=== PATIENT | female | born 1965 | race Caucasian/White ===

== ENCOUNTER 2017-04-30 20:59 | Emergency (ER) | payer MEDICAID ==
[~2017-04-30] VITALS: Ht 165.1 cm; Wt 55.8 kg
[2017-04-30 20:59] VITALS: BP_SYST 140
[2017-04-30] MEDS ORDERED: ASPIRIN 81 MG TAB.CHEW PO ONE (21:15)
[2017-04-30] MEDS ORDERED: NACL 0.9% 1,000 ML IV ONE (21:15)
[2017-04-30] MEDS ORDERED: NITROGLYCERIN 1 INCH (GM) OINT. TD ONE (21:15)
[2017-04-30 21:30] LABS: BASOPHILS # (AUTO) 0.1 K/uL (0.0-0.2); BASOPHILS % (AUTO) 0.9 % (0.0-2.0); EOSINOPHILS # (AUTO) 0.2 K/uL (0.0-0.4); EOSINOPHILS % (AUTO) 1.9 % (0.0-4.0); HEMATOCRIT 39.3 % (36-48); LYMPHOCYTES # (AUTO) 3.3 K/uL (1.0-5.5); LYMPHOCYTES % (AUTO) 39.6 % (20.5-51.5); MEAN CORPUSCULAR HEMOGLOBIN 30 pg (27-31); MEAN CORPUSCULAR HGB CONC 33 % (32-36); MEAN CORPUSCULAR VOLUME 90 fL (79.0-98.0); MONOCYTES # (AUTO) 0.6 K/uL (0.0-1.0); NEUTROPHILS # (AUTO) 4.2 K/uL (1.8-7.7); NEUTROPHILS % (AUTO) 50.6 % (40.0-70.0); PLATELET COUNT (AUTO) 239 K/uL (130-430); RED BLOOD CELL COUNT(AUTO) 4.34 MIL/uL (4.2-6.2); RED CELL DISTRIBUTION WIDTH 12.8 % (9.0-15.0); WHITE BLOOD COUNT (AUTO) 8.4 K/uL (4.8-10.8)
[2017-04-30 21:33] LABS: CALCIUM 8.8 mg/dL (8.4-11.0); CREATININE 0.71 mg/dL (0.55-1.30); POTASSIUM 3.6 mmol/L (3.5-5.1)
[2017-04-30 21:36] LABS: INR 0.9 (0.8-1.2); PROTHROMBIN TIME 10.3 SECS (9.5-12.5)
[2017-04-30 21:38] LABS: ALBUMIN 3.6 g/dL (3.4-4.8); TOTAL BILIRUBIN 0.2 mg/dL (0.0-1.0); TOTAL PROTEIN, SERUM 6.7 g/dL (6.4-8.3)
[2017-04-30] MEDS ORDERED: KETOROLAC TROMETHAMINE 30 MG VIAL IVP ONE (21:45)
[2017-04-30 22:40] VITALS: BP_SYST 116
== END 2017-04-30 22:40 | disposition home or self-care (01) ==
LOC: SED 20:59
DX: R07.89 Other chest pain (principal); R03.0 Elevated blood-pressure reading, without diagnosis of hypertension; F17.210 Nicotine dependence, cigarettes, uncomplicated; Z88.5 Allergy status to narcotic agent; Z71.6 Tobacco abuse counseling
CPT/HCPCS: 36415; 71010; 80053; 83880; 84484; 85025; 85379; 85610; 85730; 93005; 96361; 96374; 99285; J1885; J7030

== ENCOUNTER 2020-10-18 15:03 | Emergency (ER) | payer MEDICAID ==
[~2020-10-18] VITALS: Ht 172.7 cm; Wt 65.8 kg
[2020-10-18 15:06] VITALS: BP_SYST 138
[2020-10-18] MEDS ORDERED: KETOROLAC TROMETHAMINE 15 MG VIAL IVP ONE (15:30)
[2020-10-18] MEDS ORDERED: KETOROLAC TROMETHAMINE 15 MG VIAL ONE (15:46)
[2020-10-18] MEDS ORDERED: KETOROLAC TROMETHAMINE 15 MG VIAL IM ONE (16:00)
[2020-10-18 16:01] VITALS: BP_SYST 138
== END 2020-10-18 16:01 | disposition home or self-care (01) ==
LOC: SED 15:03
DX: K08.89 Other specified disorders of teeth and supporting structures (principal); Z88.5 Allergy status to narcotic agent
CPT/HCPCS: 96372; 99283; J1885

== ENCOUNTER 2021-06-12 12:01 | Emergency (ER) | payer MEDICAID, SELFPAY ==
[~2021-06-12] VITALS: Ht 165.1 cm; Wt 63.5 kg
[2021-06-12 12:01] VITALS: BP_SYST 112
[2021-06-12] MEDS ORDERED: NACL 0.9% 1,000 ML IV ONE (13:00)
[2021-06-12] MEDS ORDERED: KETOROLAC TROMETHAMINE 30 MG VIAL IVP ONE (13:00)
[2021-06-12 13:24] LABS: BASOPHILS % (AUTO) 0.8 % (0.0-2.0); EOSINOPHILS % (AUTO) 0.7 % (0.0-4.0); HEMATOCRIT 42.8 % (36-48); HEMOGLOBIN 14.4 g/dL (12.0-16.0); LYMPHOCYTES # (AUTO) 2.1 K/uL (1.0-5.5); LYMPHOCYTES % (AUTO) 33.6 % (20.5-51.5); MEAN CORPUSCULAR HEMOGLOBIN 30 pg (27-31); MEAN CORPUSCULAR HGB CONC 34 % (32-36); MEAN CORPUSCULAR VOLUME 90 fL (79.0-98.0); MONOCYTES # (AUTO) 0.5 K/uL (0.0-1.0); MONOCYTES % (AUTO) 8.7 % (1.7-9.3); NEUTROPHILS # (AUTO) 3.4 K/uL (1.8-7.7); NEUTROPHILS % (AUTO) 56.2 % (40.0-70.0); PLATELET COUNT (AUTO) 238 K/uL (130-430); RED BLOOD CELL COUNT(AUTO) 4.76 MIL/uL (4.2-6.2); WHITE BLOOD COUNT (AUTO) 6.1 K/uL (4.8-10.8)
[2021-06-12 13:27] LABS: CALCIUM 8.7 mg/dL (8.4-11.0); CREATININE 0.89 mg/dL (0.55-1.30); POTASSIUM 3.1 mmol/L (3.5-5.1)
[2021-06-12 13:33] LABS: ALBUMIN 3.7 g/dL (3.4-4.8); TOTAL BILIRUBIN 0.5 mg/dL (0.0-1.0)
[2021-06-12 13:47] LABS: INFLUENZA A&B ANTIGEN SCREEN NEGATIVE FOR A & B (NEGATIVE)
[2021-06-12] MEDS ORDERED: POTASSIUM CHLORIDE 20 MEQ TAB.PRT.SR PO ONE (14:00)
[2021-06-12] MEDS ORDERED: METOCLOPRAMIDE HCL 10 MG/2 ML VIAL IVP ONE (14:00)
[2021-06-12] MEDS ORDERED: CEFU250T85 PO (14:31)
[2021-06-12 14:33] LABS: BILIRUBIN,URINE NEGATIVE (NEGATIVE); BLOOD, URINE 2+ (NEGATIVE); CLARITY/URINE CLEAR (CLEAR); COLOR,URINE YELLOW (YELLOW); GLUCOSE,URINE NEGATIVE (NEGATIVE); KETONES,URINE TRACE (NEGATIVE); LEUKOCYTE ESTERASE ,URINE NEGATIVE (NEGATIVE); NITRITE, URINE NEGATIVE (NEGATIVE); PROTEIN URINE NEGATIVE (NEGATIVE); UROBILINOGEN,URINE 0.2 (0.2-1.0)
[2021-06-12] MEDS ORDERED: PANTOPRAZOLE SODIUM 40 MG TAB ONE (14:40)
[2021-06-12 14:47] LABS: BACTERIA,URINE RARE /HPF (None Seen); MUCUS,URINE 1+ /LPF (None Seen); RBC,URINE 0-3 /HPF (0-3); WBC,URINE 0-3 /HPF (0-3)
[2021-06-12 15:08] VITALS: BP_SYST 112
== END 2021-06-12 15:09 | disposition home or self-care (01) ==
LOC: SED 12:01
DX: A09 Infectious gastroenteritis and colitis, unspecified (principal); B34.9 Viral infection, unspecified; Z88.5 Allergy status to narcotic agent; Z79.899 Other long term (current) drug therapy; Z20.822 Contact with and (suspected) exposure to COVID-19
CPT/HCPCS: 36415; 80053; 81000; 85025; 86710; 87426; 96361; 96374; 96375; 99284; J1885; J2765; J7030

== ENCOUNTER 2021-06-14 04:11 | Emergency (ER) | payer MEDICAID, SELFPAY ==
[~2021-06-14] VITALS: Ht 165.1 cm; Wt 64.0 kg
[2021-06-14 04:20] VITALS: BP_SYST 113
--- NOTE | 2021-06-14 04:22 | NUR ---
Placed in room 5 . Placed on site monitor, blood pressure machine and pulse oximeter. To gown for exam. Side rails up. Report given to Rena KRAMER.
--- NOTE | 2021-06-14 04:23 | NUR ---
Patient came to ER. C/O nausea, anxiety x today. Patient reported, patient had nausea, lack of appetite since , A/O,X4, anxious, nausea, vss.
--- NOTE | 2021-06-14 04:23 | NUR ---
ER Dr. Bledsoe at bedside examining patient.
[2021-06-14] MEDS ORDERED: IBUPROFEN 800 MG TABLET PO ONE (04:30)
[2021-06-14] MEDS ORDERED: ONDANSETRON 4 MG ODT TAB PO ONE (04:30)
[2021-06-14] MEDS ORDERED: LORazepam 1 MG TABLET PO ONE (04:30)
[2021-06-14] MEDS ORDERED: ONDA-8 TL (04:38)
--- NOTE | 2021-06-14 06:42 | NUR ---
Patient resting quietly. No acute distress noted. Vital signs within normal range.
--- NOTE | 2021-06-14 06:50 | NUR ---
Called family for a ride.
--- NOTE | 2021-06-14 07:14 | NUR ---
Report given to WILLIAMS Decker and endorse care of patient.
--- NOTE | 2021-06-14 08:25 | NUR ---
Patient given written and verbal discharge instructions and verbalizes understanding. ER MD discussed with patient the results and treatment provided. Patient in stable condition. ID arm band removed. Rx of Zofran given. Patient educated on pain management and to follow up with PMD. Pain Scale 0. Opportunity for questions provided and answered. Medication side effect fact sheet provided.
[2021-06-14 08:45] VITALS: BP_SYST 113
== END 2021-06-14 08:45 | disposition home or self-care (01) ==
LOC: SED 04:11
DX: F41.9 Anxiety disorder, unspecified (principal); R51.9 Headache, unspecified; R11.0 Nausea; Z88.5 Allergy status to narcotic agent; Z79.899 Other long term (current) drug therapy
CPT/HCPCS: 99284; Q0162

== ENCOUNTER 2022-11-19 23:52 | Emergency (ER) | payer MEDICAID ==
[~2022-11-19] VITALS: Ht 162.6 cm; Wt 57.6 kg
[~2022-11-19 23:52] MED LIST: ONDA-8 TL
--- NOTE | 2022-11-20 00:01 | NUR ---
Patient to ER bed 7 to gown for evaluation. Side rails up. Report given to Ronak KRAMER (reg).
[2022-11-20 00:02] VITALS: BP_SYST 129
--- NOTE | 2022-11-20 00:03 | NUR ---
Patient arrived to ED bed 7 for c/o right index finger pain. Patient said that "it hurts, swelling, red." Patient said that she might have "used too much crazy glue on nails and some of it went on the skin." Patient also said that she tried epsom salt, vinegar, ice, and cold water and "none of it helped."
--- NOTE | 2022-11-20 00:03 | NUR ---
TAMIKO Gray examining patient.
[2022-11-20] MEDS ORDERED: LIDOCAINE 2%, 20 ML MDV INJ ONE (00:15)
[2022-11-20] MEDS ORDERED: ACETAMINOPHEN 500 MG TABLET PO ONE (00:30)
[2022-11-20] MEDS ORDERED: cephALEXin 500 MG CAPSULE PO ONE (00:30)
[2022-11-20] MEDS ORDERED: ACET-3465 PO (01:00)
[2022-11-20] MEDS ORDERED: CEPH-548 PO (01:00)
[2022-11-20] MEDS ORDERED: BACITRACIN 1 GM OINT TP ONE (01:13)
--- NOTE | 2022-11-20 01:26 | NUR ---
Patient given written and verbal discharge instructions and verbalizes understanding. ER MD discussed with patient the treatment provided. Patient in stable condition. Rx of Tylenol and Cephalexin sent to pharmacy of choice by ER MD. Patient educated on pain management and to follow up with PMD. Pain Scale 0/10. Opportunity for questions provided and answered.
[2022-11-20 01:29] VITALS: BP_SYST 134
== END 2022-11-20 01:26 | disposition home or self-care (01) ==
LOC: SED 23:52
DX: L03.011 Cellulitis of right finger (principal); Z88.5 Allergy status to narcotic agent; Z79.899 Other long term (current) drug therapy
CPT/HCPCS: 26010; 99282; J2001

== ENCOUNTER 2023-01-19 18:29 | Emergency (ER) | payer MEDICAID ==
[~2023-01-19] VITALS: Ht 165.1 cm; Wt 60.8 kg
[~2023-01-19 18:29] MED LIST changes: +ACET-3465 PO; +CEPH-548 PO
[2023-01-19 18:40] VITALS: BP_SYST 128
--- NOTE | 2023-01-19 18:43 | NUR ---
Patient triaged and placed in waiting room. VSS and patient appears in no acute distress at this time. Accompanied by SELF, awaiting available bed, and MD notified of need for MSE.
[2023-01-19] MEDS ORDERED: ACETAMINOPHEN 500 MG TABLET PO ONE (19:45)
[2023-01-19] MEDS ORDERED: LIDOCAINE PATCH 5% 1 EA TP ONE (19:45)
[2023-01-19] MEDS ORDERED: IBUPROFEN 600 MG TABLET PO ONE (19:45)
[2023-01-19] MEDS ORDERED: IBUP-1970 PO (21:21)
[2023-01-19] MEDS ORDERED: ACET-2634 PO (21:21)
[2023-01-19 23:36] VITALS: BP_SYST 129
--- NOTE | 2023-01-19 23:38 | NUR ---
Patient given written and verbal discharge instructions and verbalizes understanding. ER MD discussed with patient the results and treatment provided. Patient in stable condition. ID arm band removed. Rx of given. Patient educated on pain management and to follow up with PMD. Pain Scale . Opportunity for questions provided and answered. Medication side effect fact sheet provided.
== END 2023-01-19 23:36 | disposition home or self-care (01) ==
LOC: SED 18:29
DX: S20.212A Contusion of left front wall of thorax, initial encounter (principal); Z88.5 Allergy status to narcotic agent; Z79.899 Other long term (current) drug therapy; W18.30XA Fall on same level, unspecified, initial encounter; Y93.89 Activity, other specified; Y92.89 Other specified places as the place of occurrence of the external cause; Y99.8 Other external cause status
CPT/HCPCS: 71100; 99283